=== PATIENT | female | born 1935 | race Caucasian/White ===

== ENCOUNTER 2017-01-11 07:36 | Day surgery (SDC) | payer MEDICARE, OTHER ==
[~2017-01-11] VITALS: Ht 160 cm; Wt 64.0 kg
[~2017-01-11 07:36] MED LIST: BREO ELLIPTA I1 EACH INH; VENTOLIN HFA18 GM INH; VITAMIN D1000 UNI1 PO
--- NOTE | 2017-01-11 09:59 | NUR ---
01/11/17 0959 Alexandria Hernandez PT SAT 100, TURNED OFF O2.
--- NOTE | 2017-01-13 19:54 | OR ---
[facility] [address], [place] [address] Signed DATE OF PROCEDURE: 01/11/17 PREOPERATIVE DIAGNOSES Anemia. Negative colonoscopy in 2013. POSTOPERATIVE DIAGNOSES Minimal gastritis. Mckinney diverticulosis. A 5-mm polyp, proximal right colon. A small lipoma, proximal right colon. PROCEDURE EGD with CLOtest and biopsies of the duodenum and antrum. Colonoscopy without biopsy. ESTIMATED BLOOD LOSS: None. INDICATIONS Elvia is a 81-year-old female, who actually broke her wrist earlier this year. She is still using her brace, and just 2 days ago, she had bilateral blepharoplasty for her eyes. She thinks there are pins in her wrist. During all this, she was found to be anemic. She had been to her sdet over in the [facility]. She was asked to see me for upper and lower endoscopy with respect to the anemia. In the meantime, she denies any upper or lower GI complaints. She said her sister has been anemic in the past. She also told me about her negative colonoscopy in [place] in 2013. In the office, I gave Elvia pamphlets on both upper and lower endoscopy. We discussed the nature of the 2 tests along with the risks including, but not limited to gas, bloating, crampy abdominal pain, bleeding, perforation requiring surgery, and missed diagnosis. We also discussed the need for IV conscious sedation. She had expressed understanding, wished to proceed. PROCEDURE NOTE Elvia was taken into our endoscopy suite and placed in the supine semi-recumbent position. She was given IV sedation with 4 mg of Versed, 100 mcg of Fentanyl to cover both cases. The posterior oropharynx was anesthetized with Hurricaine spray. A bite-block was utilized for the case. The adult gastroscope was introduced and advanced all the way out into the third portion of the duodenum under direct visualization of camera without difficulty. It looked like she had a little irritation in her duodenum, so we took biopsies for pathologic review. After this, the scope was withdrawn back into the stomach itself. Again, she looked like she had a little gastritis, so we took biopsies of the antrum as well as a biopsy for CLOtest. Upon retroflexion of the scope, there was no evidence of a hiatal hernia. There were no gastric or esophageal varices. Electronically Signed By: JESSICA LOPEZ MD 01/13/171953 PATIENT NAME: ELVIA MAYNARD OPERATIVE REPORT DATE OF : 39 PHYSICIAN: JESSICA LOPEZ MD REPORT #: [id number] REPORT IS CONFIDENTIAL AND NOT TO BE RELEASED WITHOUT AUTHORIZATION [facility] [address], [place] [address] Signed There were no ulcerations. The scope was withdrawn up to the area of GE junction, which was compliant without stricture. Her Z-line is relatively intact. There was no Vera's mucosa, no distal esophagitis. The middle and upper esophagus were unremarkable. After this, the gas was suctioned out and the gastroscope removed. Elvia was then rotated into the left lateral decubitus position. A digital rectal exam was performed and this was unremarkable. We did start a new IV during this time. The adult colonoscope was introduced and advanced all the way around into the cecum under direct visualization of camera without difficulty. Because of her large diverticula, she did have some particulate liquid stool matter that I could not quite irrigate and suction out completely. She might consider an additional amount of prep on her next colonoscopy. We saw a polyp next to the ileocecal valve, which we removed with hot biopsy forceps and then opposite to ileocecal valve was a small lipoma. We did see diverticula both in the right and left sigmoid colons. Most of those are moderate in size, moderate in number and scattered about. However, in the sigmoid colon, she did have a few large diverticula. The rectum itself was unremarkable. Upon retroflexion of scope, we saw no additional pathology above the anal canal. After this, the gas was suctioned out and the colonoscope removed. Elvia tolerated the lower endoscopy quite well. RECOMMENDATIONS I will see Elvia back in my office in 7-14 days to review her results. Jessica Lopez MD AB/Alessandro /[id number] cc: MD Lisy Mota MD Electronically Signed By: JESSICA LOPEZ MD 01/13/17 1954 PATIENT NAME: ELVIA MAYNARD OPERATIVE REPORT DATE OF : 39 PHYSICIAN: JESSICA LOPEZ MD REPORT #: [id number] REPORT IS CONFIDENTIAL AND NOT TO BE RELEASED WITHOUT AUTHORIZATION
== END 2017-01-11 10:40 | disposition home or self-care (01) ==
LOC: DS 07:36 → OPS 07:36 → DS 08:30
PROVIDERS: Colon & Rectal Surgery
PROC: 0DBF8ZX Excision of Right Large Intestine, Via Natural or Artificial Opening Endoscopic, Diagnostic (ICD-10-PCS; 2017-01-11)
PROC: 0DB98ZX Excision of Duodenum, Via Natural or Artificial Opening Endoscopic, Diagnostic (ICD-10-PCS; principal; 2017-01-11 08:30)
PROC: 0DB68ZX Excision of Stomach, Via Natural or Artificial Opening Endoscopic, Diagnostic (ICD-10-PCS; 2017-01-11 08:30)
DX: D12.2 Benign neoplasm of ascending colon (principal); K57.30 Diverticulosis of large intestine without perforation or abscess without bleeding; K29.80 Duodenitis without bleeding; K31.9 Disease of stomach and duodenum, unspecified; D50.9 Iron deficiency anemia, unspecified; J44.9 Chronic obstructive pulmonary disease, unspecified; E78.5 Hyperlipidemia, unspecified; Z90.89 Acquired absence of other organs; Z90.710 Acquired absence of both cervix and uterus; Z98.890 Other specified postprocedural states; Z87.891 Personal history of nicotine dependence
CPT/HCPCS: 86677; 88305; 99152; 99153; J2250; J3010; J7120